=== PATIENT | female | born 2000 | race Hispanic/Latino ===

== ENCOUNTER 2020-08-19 08:24 | Day surgery (SDC) | payer OTHER ==
[2020-08-19] MEDS ORDERED: Ringers Lactate 1,000 ML IV ONE ×3 (08:48→14:19)
[2020-08-19] MEDS ORDERED: CEFAZOLIN/SWI 1gm 1 GM/10 ML SYR ONE (08:48)
[2020-08-19] MEDS ORDERED: SCOPOLAMINE HYDROBROMIDE PATCH TD ONE (08:48)
[2020-08-19] MEDS ORDERED: NS 0.9% VIAL 40 ML ONE (08:59)
[2020-08-19] MEDS ORDERED: GENTAMICIN SULF 80 MG/2ML INJ ONE (08:59)
[2020-08-19] MEDS ORDERED: CEFAZOLIN SODIUM 1 GM/VIAL ONE (08:59)
[2020-08-19] MEDS ORDERED: LIDOCAINE 1% W/EPI 1:100,000 MDV 50 ML VIAL ONE (08:59)
[2020-08-19] MEDS ORDERED: BACITRACIN 50000 UNIT VIAL ONE (09:00)
[2020-08-19] MEDS ORDERED: NS 0.9% VIAL 10 ML ONE ×3 (09:00→12:45)
[2020-08-19] MEDS ORDERED: MIDAZOLAM HCL 2 MG/2 ML INJ ONE (10:03)
[2020-08-19] MEDS ORDERED: ONDANSETRON 4 MG/2 ML VIAL ONE (10:03)
[2020-08-19] MEDS ORDERED: KETOROLAC 30 MG/ML INJ ONE (10:03)
[2020-08-19] MEDS ORDERED: LIDOCAINE 2% MPF 5 ML VIAL ONE (10:03)
[2020-08-19] MEDS ORDERED: propofoL 200 MG/20 ML VIAL IV ONE (10:03)
[2020-08-19] MEDS ORDERED: FENTANYL CITR 100 MCG/2 ML ONE (10:03)
[2020-08-19] MEDS ORDERED: ROCURONIUM 50 MG/5 ML VIAL IV ONE (10:03)
[2020-08-19] MEDS ORDERED: MORPHINE 10 MG/ML VIAL ONE (10:04)
[2020-08-19] MEDS ORDERED: FENTANYL CITR 250 MCG/5 ML ONE (10:04)
[2020-08-19] MEDS ORDERED: dexAMETHasone 4 MG/ML VIAL ONE (10:11)
[2020-08-19] MEDS ORDERED: NS 0.9% VIAL 20 ML ONE (10:55)
[2020-08-19] MEDS ORDERED: VECURONIUM 10 MG/VIAL IV ONE ×2 (11:05→12:31)
[2020-08-19] MEDS ORDERED: Phenylephrine HCl 10 MG/ML 1 ML VIAL ONE (11:06)
[2020-08-19] MEDS ORDERED: EPHEDRINE SULF 50 MG/ML VIAL ONE (12:21)
[2020-08-19] MEDS ORDERED: ESMOLOL HCL 10 ML IV ONE (12:31)
[2020-08-19] MEDS ORDERED: GLYCOPYRROLATE 0.2 MG/ML SYR ONE (15:00)
[2020-08-19] MEDS ORDERED: NEOSTIGMINE 1 MG/ML -5 ML ONE (15:00)
[2020-08-19] MEDS ORDERED: PROMETHAZINE INJ 25 MG/ML AMP ONE (15:09)
[2020-08-19] MEDS: HYDROMORPHONE HCL 1 MG/ML INJ ONE ×2 (15:46→15:51)
[2020-08-19] MEDS ORDERED: CODEINE 30MG/APAP 300MG TAB ONE (17:07)
[2020-08-19 17:38] VITALS: TEMP 97.1
[2020-08-19 17:41] VITALS: BP 105/67; O2SAT 100
--- NOTE | 2020-08-23 10:19 | OP ---
Surgeon: Fer Downey MD Preoperative Diagnosis: Breast enlargement. Postoperative Diagnosis: Breast enlargement. Procedure Performed: Breast reduction 608 right, 520 left. Anesthesia: General. Description Of Procedure: After satisfactory induction of general anesthesia, chest was prepped with DuraPrep, dry sterile drapes applied in the usual manner. 5 cm template was used on the right and l eft areola and a transverse curvilinear incision was made. Scalpel was used to incise and the flap w as then elevated towards the sternum, clavicle, and anterior axillary line. Then, the inferior incis ion was made and then the de-epithelialized tissue was formed with a cone. Prior to conization, late ral tissue was excised, and then cone was formed with 2-0 PDS suture. Straps were elevated at 12 o'c lock, 1:30, and 3 o'clock positions, and the straps were woven in and out the pectoralis muscle back to the cone, adipose muscles back to the cone, tied themselves with 2-0 PDS suture. 3 o'c lock strap was sewn over the sternum at 3 o'clock position, 2-0 Ethibond. Mirror image was done on t he opposite side and returned the right side. Stapled wound, sat the patient up on both sides, marke d out the dog-ears laterally, cut off excess skin with scalpel and electrocautery. Then, a 10 ANDREW was brought out the axilla and sewn in place with 2-0 silk. The wounds were closed with 3-0 Vicryl subc u, 3-0 PDS running subcuticular tied in the vertical meridian breast. Right side done. The left mame e done in identical manner. The patient was sat up. Site for new nipple-areolar complex was marked out. The tissue was cored out with a 5 cm template. Nipples delivered and sewn with inte rrupted 4-0 PDS followed by 4-0 PDS running subcuticular. Dressings consisted of tincture of benzoin , Steri-Strips, 5 x 5, fluffs, and Randal wrap. The patient tolerated the procedure well and returned to Recovery room. Amount removed from the right breast was 608 and left breast 520. GH/MODL Voice ID: [id number] Report ID: [id number]
== END 2020-08-19 17:35 | disposition home or self-care (01) ==
LOC: OR 08:24
PROVIDERS: ATTEND Specialist
PROC: 0HSV0ZZ Reposition Bilateral Breast, Open Approach (ICD-10-PCS; principal; 2020-08-19 09:00)
DX: N64.81 Ptosis of breast (principal); Z20.828 Contact with and (suspected) exposure to other viral communicable diseases
CPT/HCPCS: 81025; 88305; 19316; J2704; J1100; J2550; J2370; J1580; J2250; J3010 ×2; J1170; J2710; J0690 ×2; J7120 ×3; J2405

== ENCOUNTER 2020-09-28 07:44 | Day surgery (SDC) | payer BC ==
[2020-09-28] MEDS ORDERED: FENTANYL CITR 100 MCG/2 ML ONE (08:08)
[2020-09-28] MEDS ORDERED: dexAMETHasone 10 MG/ML VIAL ONE (08:09)
[2020-09-28] MEDS ORDERED: KETOROLAC 30 MG/ML INJ ONE (08:09)
[2020-09-28] MEDS ORDERED: LIDOCAINE 2% MPF 5 ML VIAL ONE (08:09)
[2020-09-28] MEDS ORDERED: propofoL 200 MG/20 ML VIAL IV ONE (08:09)
[2020-09-28] MEDS ORDERED: MIDAZOLAM HCL 2 MG/2 ML INJ ONE (08:09)
[2020-09-28] MEDS ORDERED: ONDANSETRON 4 MG/2 ML VIAL ONE (08:09)
[2020-09-28 08:28] LABS: Absolute Lymphocytes (CBC) 2.5 K/uL (0.7-4.9); Basophils % 0.4 % (0-1.3); Hematocrit 31.4 % (36.0-45.0); Lymphocytes % 19.3 % (15.3-44.8); MPV 7.6 fL (7.6-11.3); RBC Red Blood Cell Count 4.14 M/uL (3.86-4.86)
[2020-09-28] MEDS ORDERED: CEFAZOLIN/SWI 1gm 1 GM/10 ML SYR ONE (08:49)
[2020-09-28] MEDS ORDERED: Ringers Lactate 1,000 ML IV ONE ×2 (08:49→09:59)
[2020-09-28] MEDS ORDERED: SODIUM HYPOCHLORITE 0.5% 473 ML ONE (09:14)
[2020-09-28] MEDS ORDERED: HYDROMORPHONE HCL 2 MG/ML inj ONE (09:17)
[2020-09-28] MEDS ORDERED: NS 0.9% VIAL 20 ML ONE (09:20)
--- NOTE | 2020-09-28 10:36 | OP ---
Surgeon: Fer Downey MD Preoperative Diagnosis: Open wounds of the right and left breast. Postoperative Diagnosis: Open wounds of the right and left breast. Procedure Performed: Debridement of skin and subcutaneous tissue. Anesthesia: General. Procedure In Detail: After satisfactory induction of general anesthesia, the chest was prepped with Betadine scrub and paint. Dry sterile drapes were applied in the usual manner. A 10 blade was used to make an elliptical incision over the open area of the right breast. Cultures were taken for aerob es and anaerobes and then the skin and subcutaneous tissue were excised with a scalpel as needed. Th e wound tracked inferiorly to the 6 o'clock position of the breast. An incision was made in zigzag p osition to allow gravitational drainage. A scalpel was used. Then, the hemostat was used to pass in to the right lizette-areolar area, which was area of the open wound. A 1-inch [place] drain was passed through the wound and was jet lavaged with 2.5 L of Betadine solution. The patient had a small open wound of the left breast at approximately 8 o'clock position, it tracked towards the 7 o'clock positi on. The area was opened. The wound was then curetted and jet lavaged, irrigated with 0.5 L dilute B etadine solution. Half-strength Dakin was used to pack a half-inch Nu Gauze in the right and left br east with dressings of 4x4s and tape. The patient tolerated the procedure well and returned to [facility]. LI/DUSTY Voice ID: [id number] Report ID: [id number]
[2020-09-28 10:38] VITALS: BP 139/91; TEMP 97; O2SAT 94
[2020-09-28] MEDS ORDERED: CODEINE 30MG/APAP 300MG TAB ONE (11:01)
== END 2020-09-28 11:30 | disposition home or self-care (01) ==
LOC: OR 07:44
PROVIDERS: ATTEND Specialist
PROC: 0HBV0ZZ Excision of Bilateral Breast, Open Approach (ICD-10-PCS; principal; 2020-09-28 09:00)
DX: I96 Gangrene, not elsewhere classified (principal); S21.002A Unspecified open wound of left breast, initial encounter; S21.001A Unspecified open wound of right breast, initial encounter
CPT/HCPCS: 87070; 85025; 36415; 87205; 81025; 88304; 87075; 87077; 87186; 11042; J2704; J2250; J1170; J3010; J1100; J0690; J7120 ×2; J2405